=== PATIENT | male | born 1970 | race African-American/Black ===

== ENCOUNTER 2016-10-06 21:42 | Emergency (ER) | payer OTHER ==
[~2016-10-06] VITALS: Ht 180.3 cm; Wt 93.0 kg
[2016-10-06 21:46] VITALS: BP 209/127; PULSE 76; RESP 16; TEMP 97.5; O2SAT 100
[2016-10-06] MEDS ORDERED: cloNIDine HCL 0.1 MG TAB PO ONE (22:15)
--- NOTE | 2016-10-06 22:22 | PD ---
HPI Chief Complaint: Pain: Acute or Chronic Time Seen by Provider: 22:15 Travel History International Travel<30 days: No Contact w/Intl Traveler<30days: No Traveled to known affect area: No History of Present Illness HPI 46-year-old male presents to the emergency department for complaint of right knee pain since last evening. Patient states pain is 8/10 intensity. Patient states pain is now 1/10 in intensity. Patient denies any injury. Patient states pain reminds him of his gouty arthritis pain that he had before in the right foot and ankle. Patient's had no fever no chills no nausea no vomiting no ascending erythema or increased warmth has noted some swelling denies any repetitive kneeling or twisting type injury. 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 Patient has left over prescription bottles for hydrocodone prescribed in 2012 and indomethacin prescribed in 2014. Patient has taken no medications for his current pain. Patient was noted in triage to have markedly elevated blood pressure. Patient states approximately a year ago he was told he had high blood pressure but was given the option of lifestyle change versus antihypertensive medication. Patient denies headache visual disturbance change in mentation speech disturbance balance disturbance upper or lower extremity numbness tingling or weakness. Patient also denies any chest pain palpitations shortness of breath nausea vomiting referred neck jaw back shoulder arm or abdominal pain. Patient states she has not had any blood tests to evaluate renal function. Patient denies other concerns or complaints. Patient states family history of hypertension. PFSH Past Medical History Narrative Medical Gouty arthritis; no surgery; no tobacco use; nursing notes reviewed Gout: Yes Tetanus Vaccination: > 5 Years Influenza Vaccination: No Past Surgical History Surgical History: No Previous Surgery Social History Alcohol Use: No Tobacco Use: No Substance Use: No Allergies-Medications (Allergen,Severity, Reaction): Coded Allergies: No Known Allergies (Unverified , 10/06/16) Reported Meds & Prescriptions Reported Meds & Active Scripts Active Indomethacin 50 Mg Cap 50 Mg PO Q8HR PRN Take with food, milk, or antacids to decrease stomach adverse effects. Clonidine (Clonidine HCl) 0.1 Mg Tab 0.1 Mg PO Q12HR PRN Amlodipine (Amlodipine Besylate) 5 Mg Tab 5 Mg PO DAILY Tramadol (Tramadol HCl) 50 Mg Tab 50 Mg PO Q6H PRN Review of Systems Except as stated in HPI: all other systems reviewed are Neg General / Constitutional: No: Fever, Chills HENT: No: Headaches, Congestion Cardiovascular: No: Chest Pain or Discomfort, Diaphoresis, Dyspnea on exertion Respiratory: No: Shortness of Breath Gastrointestinal: No: Nausea, Vomiting Genitourinary: No: Decreased Urinary Output, Flank Pain Musculoskeletal: Positive: Limited ROM (right knee), Pain (right knee), No: Myalgias, Arthralgias Skin: No Rash Neurologic: No: Weakness, Dizziness, Focal Abnormalities, Coordination Problem , Ataxia, Headache, Change in Mentation, Slurred Speech, Paresthesia Psychiatric: No: Anxiety Endocrine: No: Heat Intolerance Hematologic/Lymphatic: No: Easy Bruising Physical Exam Narrative GENERAL: Well-developed well-nourished male in no acute distress no respiratory distress; GCS 15 SKIN: Warm and dry. HEAD: Normocephalic. EYES: No scleral icterus. No injection or drainage. NECK: Supple, trachea midline. No JVD or lymphadenopathy. CARDIOVASCULAR: Regular rate and rhythm without murmurs, gallops, or rubs. RESPIRATORY: Breath sounds equal bilaterally. No accessory muscle use. GASTROINTESTINAL: Abdomen soft, non-tender, nondistended. MUSCULOSKELETAL: No cyanosis, or edema. Attention right knee small ballotable effusion localized reproducible tenderness to palpation along the medial inferior aspect knee along the medial tibial plateau medially and at the patellar tendon; no redness no increased warmth pain with range of motion localized to the inferior medial aspect of the knee and inferior medial patellar tendon; no pain into the joint with range of motion and patient with end range of motion on flexion and extension; patient reports feels as if knee is "going to lock into place". No joint instability with provocative testing. Mild increased pain with varus/valgus maneuver. Distally extremity is neurovascular tendon intact dorsalis pedis pulses 2+ to palpation proximally no ascending erythema or groin lymphadenopathy. BACK: Nontender without obvious deformity. No CVA tenderness. Data Data Last Documented VS Vital Signs Date Time Temp Pulse Resp B/P Pulse Ox O2 Delivery O2 Flow Rate FiO2 10/07/16 00:29 16 10/07/16 00:15 66 173/91 99 Room Air 10/06/16 21:46 97.5 Orders Clonidine (Catapres) (10/06/16 22:15) Knee, Complete (4vws) (10/06/16 ) ^ Saline Lock (10/06/16 22:27) Basic Metabolic Panel (Bmp) (10/06/16 22:27) Uric Acid (10/06/16 22:27) Urinalysis - C+S If Indicated (10/06/16 22:27) Hydralazine Inj (Apresoline Inj) (10/06/16 23:00) Ketorolac Inj (Toradol Inj) (10/06/16 23:15) Splint Or Brace Apply/Monitor (10/06/16 23:41) Labs Laboratory Tests Test 10/06/16 10/06/16 22:30 22:40 Sodium Level 140 MEQ/L Potassium Level 3.6 MEQ/L Chloride Level 102 MEQ/L Carbon Dioxide Level 33.3 MEQ/L Anion Gap 5 MEQ/L Blood Urea Nitrogen 11 MG/DL Creatinine 1.30 MG/DL Estimat Glomerular Filtration 72 ML/MIN Rate Random Glucose 97 MG/DL Uric Acid 7.9 MG/DL Calcium Level 8.5 MG/DL Urine Color STRAW Urine Turbidity CLEAR Urine pH 6.5 Urine Specific Reliance 1.006 Urine Protein TRACE mg/dL Urine Glucose (UA) NEG mg/dL Urine Ketones NEG mg/dL Urine Occult Blood LARGE Urine Nitrite NEG Urine Bilirubin NEG Urine Leukocyte Esterase NEG Urine RBC 25-49 /hpf Urine WBC 0-2 /hpf Urine Squamous Epithelial 0-5 /hpf Cells Urine Bacteria NONE /hpf Microscopic Urinalysis Comment CULT NOT INDICATED MDM Medical Decision Making Medical Screen Exam Complete: Yes Emergency Medical Condition: Yes Medical Record Reviewed: Yes Interpretation(s) u/a: trace protein, large blood u ac: bmp: grossly wnl, cr:1.3, gfr:72, mildly decreased Right knee xr: FINDINGS: No fracture or subluxation seen of the right knee. There is mild patellofemoral osteoarthritis. There is prepatellar soft tissue swelling and suspected thickening of the extensor mechanism. No radiopaque foreign body demonstrated. CONCLUSION: Patellar tendon thickening/prepatellar soft tissue swelling.. Mild patellofemoral osteoarthritis. No fracture or subluxation of the right knee. Abdon Jones MD on October 06, 2016 at 22:52 Board Certified Radiologist. This report was verified electronically. Differential Diagnosis Knee pain, internal derangement, meniscal injury, gouty arthritis, bursitis, traumatic effusion, septic arthritis, untreated/uncontrolled hypertension Narrative Course Blood pressure rechecked and noted to remain elevated; patient administered clonidine 0.1 mg and imaging of the left knee ordered Diagnosis Primary Impression: Patellar tendinitis of right knee Additional Impressions: HTN (hypertension) Qualified Code: I10 - Essential hypertension Gout of right knee Qualified Code: M10.9 - Acute gout of right knee, unspecified cause Referrals: Orthopedist as needed Primary Care Physician call for appointment Patient Instructions: General Instructions Departure Forms: Tests/Procedures, Work Release Special Instructions: no work x 1 day Additional Instructions: wear knee immobilizer no work x 1 day monitor temperature every 4 hours with thermometer and take acetaminophen/ Tylenol every 4 hours for fever 100.4F or greater take NSAID pain medication as prescribed, indomethacin take as needed pain medication, tramadol; do not drive or drink alcoholic beverages when taking this medication take blood pressure medication as prescribed, amlodipine daily and clonidine only as needed-not daily follow up with your PCP or with [facility] follow up with orthopedist as needed Med/Other Pt SpecificInfo: Prescription(s) given Scripts Indomethacin 50 Mg Cap50 Mg PO Q8HR PRN (PAIN GREATER THAN 7) #10 CAP Ref 0 Take with food, milk, or antacids to decrease stomach adverse effects. Prov:Padmini Lozada MD 10/07/16 Clonidine 0.1 Mg Tab0.1 Mg PO Q12HR PRN (SBP>180, DBP>95) #3 TAB Ref 0 Prov:Padmini Lozada MD 10/07/16 Amlodipine 5 Mg Tab5 Mg PO DAILY #30 TAB Ref 0 Prov:Padmini Lozada MD 10/07/16 Tramadol 50 Mg Tab50 Mg PO Q6H PRN (PAIN) #12 TAB Ref 0 Prov:Padmini Lozada MD 10/07/16 Disposition: 01 DISCHARGE HOME Condition: Stable Padmini Lozada MD October 06, 2016 22:22
[2016-10-06 22:44] LABS: BLOOD, URINE LARGE (NEG); GLUCOSE,URINE NEG (NEG); KETONE, URINE NEG (NEG); NITRITE,URINE NEG (NEG); PH, URINE 6.5 (5.0-8.5)
[2016-10-06 22:47] LABS: URINE COLOR STRAW (YELLW/STRAW)
[2016-10-06 22:48] LABS: COMMENT (UR) CULT NOT INDICATED; CULTURE IF INDICATED CULT NOT INDICATED; SQUAMOUS EPITHELIAL CELL URINE 0-5 /hpf (0-5); WBC, URINE 0-2 /hpf (0-5)
[2016-10-06 22:48] LABS: POTASSIUM 3.6 MEQ/L (3.5-5.1)
[2016-10-06 22:51] LABS: BICARBONATE 33.3 MEQ/L (21.0-32.0)
[2016-10-06 22:52] VITALS: BP 222/116; PULSE 89; RESP 18; O2SAT 98
--- NOTE | 2016-10-06 22:56 | RADHPO ---
EXAM DATE/TIME: 10/06/2016 22:39 [place] COMPARISON: No previous studies available for comparison. INDICATIONS : Right patella pain. No known injury. MEDICAL HISTORY : None. SURGICAL HISTORY : None. ENCOUNTER: Initial ACUITY: 2 days PAIN SCORE: 3/10 LOCATION: Right knee FINDINGS: No fracture or subluxation seen of the right knee. There is mild patellofemoral osteoarthritis. There is prepatellar soft tissue swelling and suspected thickening of the extensor mechanism. No radiopaqu e foreign body demonstrated. CONCLUSION: Patellar tendon thickening/prepatellar soft tissue swelling.. Mild patellofemoral osteoarthritis. No fracture or subluxation of the right knee. Abdon Jones MD on October 06, 2016 at 22:52 Board Certified Radiologist. This report was verified electronically.
[2016-10-06] MEDS ORDERED: hydrALAZINE HCL 20 MG/ML VIAL IV PUSH ONE (23:00)
[2016-10-06] MEDS ORDERED: KETOROLAC TROMETHAMINE 30 MG/ML (IVP) VIAL IV PUSH ONE (23:15)
[2016-10-06 23:20] VITALS: BP 200/99; PULSE 63; RESP 18; O2SAT 99
[2016-10-06 23:23] VITALS: BP 181/90; PULSE 62; RESP 18; O2SAT 100
[2016-10-06 23:30] VITALS: BP 189/97; PULSE 66; RESP 18; O2SAT 99
[2016-10-06 23:40] LABS: URIC ACID 7.9 MG/DL (2.6-7.2)
[2016-10-06 23:54] VITALS: BP 175/93; PULSE 56; RESP 18; O2SAT 99
[2016-10-07] MEDS ORDERED: CLON0.1T PO (00:12)
[2016-10-07] MEDS ORDERED: AMLO5TAB2 PO (00:12)
[2016-10-07] MEDS ORDERED: TRAM50TA PO (00:12)
[2016-10-07] MEDS ORDERED: INDO50CA PO (00:12)
[2016-10-07 00:15] VITALS: BP 173/91; PULSE 66; RESP 18; O2SAT 99
[2016-10-07 00:29] VITALS: RESP 16
== END 2016-10-07 00:47 | disposition home or self-care (01) ==
LOC: PHED 21:42
DX: M76.51 Patellar tendinitis, right knee (principal); M17.9 Osteoarthritis of knee, unspecified; I10 Essential (primary) hypertension; M10.9 Gout, unspecified
CPT/HCPCS: 73564; 80048; 81001; 84550; 96374; 96375; 99283; J0360; J1885; L1830